=== PATIENT | male | born 1945 | race Caucasian/White ===

== ENCOUNTER → 2019-02-26 | Outpatient (CLI) | payer MEDICARE ==
[~2019-02-26] MED LIST: ALBU8.5H5 INH; ASPI325T17 PO; CARI350T PO; DICL75TA3 PO; HYDR-3307 PO; LEVO200T PO; LOVA40TA2 PO; OXYC10TA6 PO
[2019-02-26 10:11] LABS: BASOPHILS # (AUTO) 0.02 x10^3/uL (0-0.1); BASOPHILS % (AUTO) 0 % (0-1); EOSINOPHILS # (AUTO) 0.32 x10^3/uL (0-0.4); EOSINOPHILS % (AUTO) 3 % (1-7); LYMPHOCYTES # (AUTO) 4.24 x10^3/uL (1-3.4); LYMPHOCYTES % (AUTO) 38 % (22-44); MD NO; MEAN CORPUSCULAR HEMOGLOBIN 30.1 pg (27.5-34.5); MEAN CORPUSCULAR HGB CONC 32.4 g/dL (33.2-36.2); MEAN CORPUSCULAR VOLUME 92.9 fL (81-97); MEAN PLATELET VOLUME 7.2 fL (7.4-10.4); MONOCYTES # (AUTO) 0.78 x10^3/uL (0.2-0.8); MONOCYTES % (AUTO) 7 % (2-9); NEUTROPHILS # (AUTO) 5.72 x10^3/uL (1.8-6.8); NEUTROPHILS % (AUTO) 52 % (42-75); PLATELET COUNT 263 x10^3/uL (130-400); RED BLOOD COUNT 5.06 x10^6/uL (4.38-5.82); RED CELL DISTRIBUTION WIDTH 14.6 % (9.4-14.8)
[2019-02-26 10:21] LABS: ANION GAP 6 mmol/L (5-15); CALCIUM 9.3 mg/dL (8.5-10.1); CHLORIDE 109 mmol/L (98-107)
[2019-02-26 10:24] LABS: ALANINE AMINOTRANSFERASE 28 U/L (12-78); ALKALINE PHOSPHATASE 95 U/L (45-117); BILIRUBIN,TOTAL 0.5 mg/dL (0.2-1.0); CREATININE 1.19 mg/dL (0.7-1.3); TOTAL PROTEIN 7.9 g/dL (6.4-8.2)
== END | disposition home or self-care (01) ==
LOC: STAR 09:04
PROVIDERS: ATTEND Orthopaedic Surgery
DX: I45.10 Unspecified right bundle-branch block (principal); M16.12 Unilateral primary osteoarthritis, left hip
CPT/HCPCS: 36415; 80053; 85025; 87081; 93005

== ENCOUNTER 2019-03-09 07:46 | Inpatient (IN) | payer MEDICARE, OTHER ==
[~2019-03-09] VITALS: Ht 180.3 cm; Wt 126.6 kg
[~2019-03-09 07:46] MED LIST changes: +EPINEPHRINE 1 MG/ML, 1ML ONE; +KETOROLAC 60 MG/2 ML ONE; +ROPIvacaine/PF 0.2%, 20 ML ONE; +SODIUM CHLORIDE 0.9% 50 ML ONE; +TRANEXAMIC ACID 100 MG/ML, 10ML ONE
[2019-03-09] MEDS ORDERED: VANCOMYCIN PER PHARMACY MC ONE (08:03)
[2019-03-09] MEDS ORDERED: LACTATED RINGERS 1,000 ML IV SCH (08:16)
[2019-03-09] MEDS ORDERED: VANCOMYCIN 1,900 MG in SODIUM CHLORIDE 0.9% 250 ML IV ONE (08:30)
[2019-03-09] MEDS ORDERED: GABAPENTIN 300 MG CAPSULE PO ONE (09:00)
[2019-03-09] MEDS ORDERED: ACETAMINOPHEN 500 MG TABLET PO ONE (09:00)
[2019-03-09] MEDS ORDERED: ACETAMINOPHEN 500 MG TABLET ONE (09:05)
[2019-03-09] MEDS ORDERED: GABAPENTIN 300 MG CAPSULE ONE (09:05)
[2019-03-09] MEDS ORDERED: FENTANYL PF 250 MCG/5ML ONE (09:55)
[2019-03-09] MEDS ORDERED: MIDAZOLAM 1 MG/ML, 2ML ONE (09:55)
[2019-03-09] MEDS ORDERED: LABETALOL 5MG/ML, 20ML IV PRN (11:00)
[2019-03-09] MEDS ORDERED: PROMETHAZINE 25 MG/ML, 1ML IV PRN (11:00)
[2019-03-09] MEDS ORDERED: ALBUTEROL SULFATE 2.5 MG/3 ML NPPB PRN (11:00)
[2019-03-09] MEDS ORDERED: OXYcodone 5 MG/5 ML ORAL.SOL UDC PO PRN (11:00)
[2019-03-09] MEDS ORDERED: DIAZEPAM 5 MG/ML, 2ML IVPush PRN (11:00)
[2019-03-09] MEDS ORDERED: MEPERIDINE/PF 25MG/0.5ML IVPush PRN (11:00)
[2019-03-09] MEDS ORDERED: HYDROmorphone 2 MG/ML, 1ML IVPush PRN ×2 (11:00→13:30)
[2019-03-09] MEDS ORDERED: hydrALAzine 20 MG/ML, 1ML IV PRN (11:00)
[2019-03-09] MEDS ORDERED: ROCURONIUM 10MG/ML,5ML ONE (12:33)
[2019-03-09] MEDS ORDERED: ONDANSETRON 2MG/ML, 2ML ONE (12:33)
[2019-03-09] MEDS ORDERED: SUCCINYLCHOLINE 20 MG/ML, 10ML ONE (12:33)
[2019-03-09] MEDS ORDERED: CEFAZOLIN 1,000 MG ONE (12:33)
[2019-03-09] MEDS ORDERED: GLYCOPYRROLATE 0.2MG/1ML, 5ML ONE (12:33)
[2019-03-09] MEDS ORDERED: PROPOFOL 10 MG/ML, 20ML ONE (12:33)
[2019-03-09] MEDS ORDERED: NEOSTIGMINE 1 MG/ML, 10ML ONE (12:33)
[2019-03-09] MEDS ORDERED: DEXAMETHASONE 4 MG/ML, 1ML ONE (12:33)
[2019-03-09] MEDS ORDERED: FENTANYL PF 100 MCG/2ML ONE (13:16)
[2019-03-09] MEDS ORDERED: OXYcodone 5 MG/5 ML ORAL.SOL UDC ONE (13:16)
[2019-03-09] MEDS: FENTANYL PF 100 MCG/2ML IV PRN ×3 (13:17→13:37)
[2019-03-09] MEDS ORDERED: SCOPOLAMINE PATCH, 1.5MG PATCH.TD72 TD SCH (13:30)
[2019-03-09] MEDS ORDERED: TRANEXAMIC ACID 1,000 MG in SODIUM CHLORIDE 0.9% 100 ML IVPB ONE (13:30)
[2019-03-09] MEDS ORDERED: ZOLPIDEM 5MG TABLET PO PRN (13:30)
[2019-03-09] MEDS ORDERED: PROMETHAZINE 12.5 MG SUPP PR PRN (13:30)
[2019-03-09] MEDS ORDERED: HYDROcodone/APAP 10/325 MG TABLET PO PRN (13:30)
[2019-03-09] MEDS ORDERED: ACETAMINOPHEN 650 MG/20.3 ML UDC PO PRN (13:30)
[2019-03-09] MEDS ORDERED: ALUMINUM/MAG/SIMETHICONE 30 ML UDC PO PRN (13:30)
[2019-03-09] MEDS ORDERED: ONDANSETRON 4 MG TABLET PO PRN (13:30)
[2019-03-09] MEDS ORDERED: BISACODYL 10 MG SUPP PR PRN (13:30)
[2019-03-09] MEDS ORDERED: DIAZEPAM 5 MG TABLET PO PRN (13:30)
[2019-03-09] MEDS ORDERED: SENNA/DOCUSATE TABLET PO PRN (13:30)
[2019-03-09] MEDS ORDERED: DIPHENHYDRAMINE 25 MG CAPSULE PO PRN (13:30)
[2019-03-09] MEDS ORDERED: MAGNESIUM HYDROXIDE 8%, 30ML UDC PO PRN (13:30)
[2019-03-09] MEDS ORDERED: ONDANSETRON 2MG/ML, 2ML IV PRN (13:30)
[2019-03-09] MEDS ORDERED: PROMETHAZINE 25 MG/ML, 1ML IM PRN (13:30)
[2019-03-09] MEDS ORDERED: PSYLLIUM PACKET PO PRN (13:30)
[2019-03-09] MEDS ORDERED: DEXAMETHASONE 4 MG/ML, 1ML IVPush SCH (13:30)
[2019-03-09] MEDS ORDERED: POLYETHYLENE GLYCOL 17 GM PACKET PO PRN (13:30)
[2019-03-09] MEDS: CEFAZOLIN PMX 2GM/50ML 50 ML IVPB SCH (14:19)
[2019-03-09 14:40] VITALS: BP 133/76
[2019-03-09] MEDS: SODIUM CHLORIDE 0.9% 1,000 ML IV SCH (15:49)
[2019-03-09] MEDS ORDERED: EPHEDRINE 50 MG/ML, 1ML ONE (16:03)
[2019-03-09] MEDS: FERROUS SULFATE 325 MG TABLET PO SCH (17:31)
[2019-03-09] MEDS: CALCIUM/VITAMIN D3 250-125 TABLET PO SCH (17:31)
[2019-03-09] MEDS ORDERED: ASPIRIN 81 MG TABLET EC PO SCH (18:00)
[2019-03-09 20:22] VITALS: BP 139/71
[2019-03-09] MEDS: DOCUSATE 100 MG CAPSULE PO SCH (20:22)
[2019-03-09] MEDS: KETOROLAC 30 MG/1 ML IV SCH (20:22)
[2019-03-09 23:57] VITALS: BP 121/66
[2019-03-10] MEDS: CEFAZOLIN PMX 2GM/50ML 50 ML IVPB SCH (02:46)
[2019-03-10] MEDS: KETOROLAC 30 MG/1 ML IV SCH (02:56)
[2019-03-10] MEDS: SODIUM CHLORIDE 0.9% 1,000 ML IV SCH (03:00)
[2019-03-10 05:49] VITALS: BP 131/63
[2019-03-10] MEDS ORDERED: DEXAMETHASONE 4 MG/ML, 1ML IVPush ONE (06:00)
[2019-03-10] MEDS ORDERED: LEVOTHYROXINE 75 MCG TABLET PO SCH (06:00)
[2019-03-10] MEDS ORDERED: DEXAMETHASONE 4 MG/ML, 5ML ONE (06:22)
[2019-03-10 07:28] VITALS: BP 132/68
[2019-03-10] MEDS: CALCIUM/VITAMIN D3 250-125 TABLET PO SCH (08:40)
[2019-03-10] MEDS: DOCUSATE 100 MG CAPSULE PO SCH (08:40)
[2019-03-10] MEDS: FERROUS SULFATE 325 MG TABLET PO SCH (08:40)
[2019-03-10] MEDS ORDERED: ASCORBIC ACID 500 MG TABLET PO SCH (09:00)
[2019-03-10] MEDS ORDERED: MULTIVITAMINS/MINERALS TABLET PO SCH (09:00)
[2019-03-10 09:58] VITALS: BP 151/73
== END 2019-03-10 11:27 | disposition home or self-care (01) | DRG 470 ==
LOC: ORIP 07:46 → 4NOR 14:06
PROVIDERS: ADMIT Orthopaedic Surgery; ATTEND Orthopaedic Surgery
PROC: 0SRB06A Replacement of Left Hip Joint with Oxidized Zirconium on Polyethylene Synthetic Substitute, Uncemented, Open Approach (ICD-10-PCS; principal; 2019-03-09 11:00)
DX: M16.12 Unilateral primary osteoarthritis, left hip (principal); M25.752 Osteophyte, left hip; E66.9 Obesity, unspecified; J45.909 Unspecified asthma, uncomplicated; Z68.38 Body mass index [BMI] 38.0-38.9, adult; Z90.49 Acquired absence of other specified parts of digestive tract
CPT/HCPCS: 36415; 72170; 85014; 85018; C1713; G0378; J0171; J0690; J1100; J1885; J2250; J2405; J2704; J2710; J2795; J3010; J3370; C1776; J0330; J7030; J7050; J7120

== ENCOUNTER → 2021-03-24 | Outpatient (CLI) | payer MEDICARE ==
[~2021-03-24] MED LIST changes: -EPINEPHRINE 1 MG/ML, 1ML ONE; +HYDR-3248 PO; -HYDR-3307 PO; -KETOROLAC 60 MG/2 ML ONE; -ROPIvacaine/PF 0.2%, 20 ML ONE; -SODIUM CHLORIDE 0.9% 50 ML ONE; -TRANEXAMIC ACID 100 MG/ML, 10ML ONE
== END | disposition home or self-care (01) ==
LOC: CVU 06:53
PROVIDERS: ATTEND Internal Medicine Cardiovascular Disease
DX: I35.8 Other nonrheumatic aortic valve disorders (principal); I51.7 Cardiomegaly; I45.10 Unspecified right bundle-branch block; I42.9 Cardiomyopathy, unspecified
CPT/HCPCS: 93306